=== PATIENT | male | born 1965 | race Caucasian/White ===

== ENCOUNTER → 2019-01-24 | Outpatient (REF) | payer OTHER ==
[2019-01-24 12:49] LABS: PLATELET COUNT, AUTOMATED 235 10^3/uL (150-450)
[2019-01-24 12:58] LABS: INR 1.02; PARTIAL THROMBOPLASTIN TIME 29.7 SECONDS (25.0-38.4); PROTHROMBIN TIME 13.1 SECONDS (11.8-14.0)
== END ==
LOC: M LABDRAW1 09:50
PROVIDERS: ATTEND Physical Medicine & Rehabilitation
DX: M48.061 Spinal stenosis, lumbar region without neurogenic claudication (principal)

== ENCOUNTER → 2019-08-18 | Outpatient (CLI) | payer OTHER | LOC: M LABSMTC 11:57 | PROVIDERS: ATTEND Physical Medicine & Rehabilitation | DX: Z11.59 Encounter for screening for other viral diseases (principal) | CPT/HCPCS: C9803; U0003 ==

== ENCOUNTER → 2019-12-14 | Outpatient (CLI) | payer OTHER ==
[2019-12-14 15:07] LABS: BLOOD UREA NITROGEN 15 MG/DL (7-18); GLOMERULAR FILTRATION RATE > 60.0 (>56)
== END ==
LOC: M PLALAB 09:45
PROVIDERS: ATTEND Physician Assistant
DX: M47.816 Spondylosis without myelopathy or radiculopathy, lumbar region (principal)